=== PATIENT | male | born 1960 | race African-American/Black ===

== ENCOUNTER 2017-01-25 10:38 | Emergency (ER) | payer OTHER ==
[2017-01-25] MEDS ORDERED: Adacel (T-DAP) 0.5 ML VIAL ONE (11:01)
== END 2017-01-25 11:08 | disposition home or self-care (01) ==
LOC: NAV ERS 10:38
DX: S61.212A Laceration without foreign body of right middle finger without damage to nail, initial encounter (principal); Z87.891 Personal history of nicotine dependence; Z23 Encounter for immunization; W25.XXXA Contact with sharp glass, initial encounter; Y99.0 Civilian activity done for income or pay
CPT/HCPCS: 12001; 90471; 90715; 99001

== ENCOUNTER 2019-05-14 11:18 | Emergency (ER) | payer OTHER | END 2019-05-14 12:13 | disposition home or self-care (01) | LOC: NAV ERS 11:18 | DX: M25.511 Pain in right shoulder (principal) | CPT/HCPCS: 99283 ==

== ENCOUNTER 2020-08-24 11:31 | Emergency (ER) | payer OTHER ==
--- NOTE | 2020-08-24 12:44 | RAD ---
Lumbar spine 3 views HISTORY: Low back pain. FINDINGS: There are 5 lumbar type vertebrae. Pedicles are intact. Minimal spondylolisthesis at the L5 -S1 level. Vertebral body heights are maintained. Degenerative changes include osteophytosis throughout the vert ebral bodies and facets. Disc space narrowing at the L4-5 level. Degenerative changes of the hips also apparent. IMPRESSION : No acute abnormalities are demonstrated.
[2020-08-24 12:50] LABS: #Basophils 0.1 thou/uL (0.0-0.2); #Lymphocytes 1.2 thou/uL (1.20-3.40); #Monocytes 0.7 thou/uL (0.11-0.59); #Neutrophils 4.8 thou/uL (1.40-6.50); %Basophils 1.8 % (0.0-1.0); %Eosinophils 0.4 % (0.0-10.0); %Lymphocytes 17.3 % (21.0-51.0); %Monocytes 10.5 % (0.0-10.0); Hemoglobin 10.2 g/dL (14.0-18.0); Mean Corpuscular HGB CONC 30.8 g/dL (32.0-36.0); Mean Corpuscular Hemoglobin 22.3 pg (27.0-31.0); Mean Corpuscular Volume 72.6 fL (78.0-98.0); Mean Platelet Volume 8.1 fL (7.4-10.4); Platelet Count 255 thou/uL (130-400); RBC Distribution Width 15.5 % (11.5-14.5); Red Blood Cell (RBC) Count 4.55 mill/uL (4.70-6.10); White Blood Cell (WBC) Count 6.9 thou/uL (4.8-10.8)
[2020-08-24 12:52] LABS: ALT (SGPT) 20 U/L (8-55); AST (SGOT) 25 U/L (5-34); Albumin 3.4 g/dL (3.4-4.8); Alkaline Phosphatase 121 U/L (40-110); Anion Gap 14 mmol/L (10-20); BUN (Urea Nitrogen) 12 mg/dL (8.4-25.7); Bilirubin, Total 0.6 mg/dL (0.2-1.2); Calc. Creatinine Clearance 0 mL/min (70-130); Calcium 8.9 mg/dL (7.8-10.44); Carbon Dioxide 27 mmol/L (23-31); Chloride 105 mmol/L (98-107); Glucose 98 mg/dL (80-115); Lipase 10 U/L (8-78); Magnesium 1.6 mg/dL (1.6-2.6); Potassium 3.6 mmol/L (3.5-5.1); Protein, Total 6.4 g/dL (5.8-8.1); Sodium 142 mmol/L (136-145)
[2020-08-24 12:53] LABS: Acetaminophen Less than 6.0 mcg/mL (10.0-30.0); Alcohol Less than 10 mg/dL (Less than 10); CK (CPK) 33 U/L (30-200); Salicylate Less than 8.0 mg/dL (15.0-30.0)
[2020-08-24 13:00] LABS: Bilirubin Negative (Negative); Blood, Urine Trace (Negative); Glucose, Urine (Dipstick) Negative (Negative); Ketone, Urine Negative (Negative); Leukocyte Negative (Negative); Nitrite Negative (Negative); Protein, Urine (Dipstick) Negative (Neg-Trace); Specific Gravity, Urine 1.025 (1.005-1.030)
[2020-08-24 13:01] LABS: Clarity SL HAZY (Clear)
[2020-08-24 13:09] LABS: Cocaine Metabolite Screen Not Detected (NotDetected); Phencyclidine (PCP) Not Detected (NotDetected); THC/Cannabinoid Screen Not Detected (NotDetected)
[2020-08-24 13:10] LABS: Amphetamine Not Detected (NotDetected); Barbiturates Screen Not Detected (NotDetected); Benzodiazepine Screen Not Detected (NotDetected); Medtox Control Line Valid? VALID (VALID); Methadone Not Detected (NotDetected); Methamphetamine Not Detected (NotDetected); Opiate Screen Not Detected (NotDetected); Oxycodone Screen Not Detected (NotDetected); RBC/HPF 0-3 HPF (0-3); Squamous Epithelial 0-3 HPF (0-3); Tricyclic Screen Not Detected (NotDetected)
[2020-08-24 13:12] LABS: Unclassified Crystals 1+ HPF (None Seen)
== END 2020-08-24 16:21 | disposition short-term general hospital (02) ==
LOC: NAV ERS 11:31
DX: M62.81 Muscle weakness (generalized) (principal); E05.90 Thyrotoxicosis, unspecified without thyrotoxic crisis or storm; R33.9 Retention of urine, unspecified
CPT/HCPCS: 36416; 51702; 72100; 80053; 80306; 80307; 81003; 81015; 82550; 83690; 83735; 84443; 84484; 85025; 93005